=== PATIENT | female | born 1990 | race Caucasian/White ===

== ENCOUNTER 2017-08-19 22:24 | Emergency (ER) | payer SELFPAY ==
[~2017-08-19] VITALS: Ht 152.4 cm; Wt 59.0 kg
[2017-08-19 22:43] VITALS: BP 133/68
== END 2017-08-20 04:28 | disposition left against medical advice (07) ==
LOC: ER 22:25
DX: R55 Syncope and collapse (principal); Z53.21 Procedure and treatment not carried out due to patient leaving prior to being seen by health care provider
CPT/HCPCS: 82962